=== PATIENT | female | born 1950 | race Caucasian/White ===

== ENCOUNTER 2017-07-04 12:26 | Emergency (ER) | payer MEDICARE, BC ==
[2017-07-04 13:21] LABS: URINE APPEARANCE CLEAR; URINE BILIRUBIN NEGATIVE (NEGATIVE); URINE BLOOD NEGATIVE (NEGATIVE); URINE COLOR YELLOW; URINE GLUCOSE (UA) NEGATIVE (NEGATIVE); URINE KETONE NEGATIVE (NEGATIVE); URINE LEUKOCYTE ESTERASE NEGATIVE (NEGATIVE); URINE NITRITE NEGATIVE (NEGATIVE); URINE PROTEIN NEGATIVE (NEGATIVE); URINE UROBILINOGEN 0.2 E.U./dL (0.20 - 1.00)
[2017-07-04] MEDS ORDERED: 0.9 % SODIUM CHLORIDE 1,000 ML BAG IV ONE (13:31)
--- NOTE | 2017-07-04 13:31 | Emergency Department Record ---
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 Onset/Timin -: Days(s) Radiation: R flank Severity: Moderate Severity scale (1-10): 7 Quality: Sharp Consistency: Intermittent Improves with: None Worsens with: None Associated Symptoms: Denies other symptoms - Related Data Home Medications Medication Instructions Recorded Confirmed Last Taken Pioglitazone HCl [Actos] 30 mg PO DAILY 07/04/17 07/04/17 07/04/17 Previous Rx's Medication Instructions Recorded Cyclobenzaprine HCl [Flexeril] 10 mg PO TID #20 tablet 07/04/17 Allergies Allergy/AdvReac Type Severity Reaction Status Date / Time amoxicillin trihydrate Allergy Mild STOMACH Verified 07/04/17 13:01 [From Augmentin] UPSET potassium clavulanate Allergy Mild STOMACH Verified 07/04/17 13:01 [From Augmentin] UPSET gentamicin sulfate Allergy RASH Verified 07/04/17 13:01 [From Garamycin] NSAIDS (Non-Steroidal AdvReac NAUSEA AND Verified 07/04/17 13:01 Anti-Inflamma VOMITING Travel Screening - Travel/Exposure Within Last 30 Days Have you traveled within the last 30 days?: No - Travel/Exposure Within Last Year Have you traveled outside the [place] in the last year?: No - Additonal Travel Details Have you been exposed to anyone with a communicable illness?: No - Travel Symptoms Symptom Screening: None Past Medical History - SOCIAL HISTORY Smoking Status: Never smoker Alcohol Use: None Drug Use: None - RESPIRATORY Hx Respiratory Disorders: Yes Hx Asthma: Yes (uses inhaler prn) Hx Bronchitis: Yes Hx Sleep Apnea: Yes Hx of CPAP: Yes Comment:: chronic cough - CARDIOVASCULAR Hx Cardio Disorders: Yes Hx Hypertension: Yes - NEURO Hx Neuro Disorders: No - GI Hx GI Disorders: Yes Hx Reflux: Yes Comment:: Fatty liver - Hx Genitourinary Disorders: Yes Hx Kidney Stones: Yes - ENDOCRINE Hx Endocrine Disorders: Yes Hx Diabetes: Yes Comment:: TSH runs high not on meds - MUSCULOSKELETAL Hx Musculoskeletal Disorders: Yes Hx Arthritis: Yes - PSYCH Hx Psych Problems: No - HEMATOLOGY/ONCOLOGY Hx Hematology/Oncology Disorders: No Family Medical History Any Significant Family History?: Yes Hx Heart Disease: Father, Mother Course Vital Signs 07/04/17 13:06 Temperature 98.7 F Pulse Rate 109 H Respiratory 20 Rate Blood Pressure 124/81 Pulse Ox 99 Medical Decision Making - Lab Data Result diagrams: 07/04/17 13:55 07/04/17 13:55 Lab Results 07/04/17 Range/Units 13:15 Urine Color Yellow Urine Appearance Clear Urine pH 5.5 (5.0-8.0) Ur Specific [place] 1.010 (1.002-1.030) Urine Protein Negative (NEGATIVE) Urine Glucose (UA) Negative (NEGATIVE) Urine Ketones Negative (NEGATIVE) Urine Blood Negative (NEGATIVE) Urine Nitrite Negative (NEGATIVE) Urine Bilirubin Negative (NEGATIVE) Urine Urobilinogen 0.2 (0.20 - 1.00) E.U./dL Ur Leukocyte Esterase Negative (NEGATIVE) Disposition Clinical Impression: GERD (gastroesophageal reflux disease) Qualifiers: Esophagitis presence: with esophagitis Qualified Code(s): K21.0 - Gastro- esophageal reflux disease with esophagitis Lumbar strain Qualifiers: Encounter type: initial encounter Qualified Code(s): S39.012A - Strain of muscle, fascia and tendon of lower back, initial encounter Disposition: Home, Self-Care Condition: (1) Good Instructions: Flank Pain (ED), Gastroesophageal Reflux Disease (ED), Low Back Strain (ED) Additional Instructions: follow up with Dr. Khan next week follow up with GI for possible MRCP or ERCP maalox 30 ml after meals and bedtime tylenol for added pain relief Prescriptions: Cyclobenzaprine HCl [Flexeril] 10 mg PO TID #20 tablet Forms: Patient Portal Access Time of Disposition: 16:15 Quality - Quality Measures Quality Measures: N/A - Blood Pressure Screening Does Patient Have Any of the Following: No Blood Pressure Classification: Pre-Hypertensive BP Reading Systolic Measurement: 124 Diastolic Measurement: 81 Screening for High Blood Pressure: < Pre-Hypertensive BP, F/U Documented > [ G8950] Pre-Hypertensive Follow-up Interventions: Referral to alternative/primary care provider.
[2017-07-04] MEDS ORDERED: KETOROLAC 30 MG/ML VIAL IVP ONE (13:33)
[2017-07-04 14:14] LABS: BASO % 0.4 % (0-6); EOS % 0.9 % (0-6); HEMATOCRIT 41.5 % (35.0-47.0); HEMOGLOBIN 13.8 gm/dl (11.6-16.0); LYMPH % 27.5 % (16-45); MEAN CELL VOLUME 89.4 fl (81-97); MEAN CORPUSCULAR HEMOGLOBIN 29.7 pg (27-33); MEAN CORPUSCULAR HGB CONC 33.3 g/dl (32-36); MEAN PLATELET VOLUME 11.1 fl (7.4-10.4); MONO % 11.2 % (0-9); PLATELET COUNT 228 K/uL (130-400); RED BLOOD COUNT 4.64 M/uL (3.80-5.40); RED CELL DISTRIBUTION WIDTH 13.3 % (11.5-14.5); WHITE BLOOD COUNT W/O DIFF 5.5 K/uL (4.2-12.2)
[2017-07-04 14:22] LABS: BLOOD UREA NITROGEN 10 mg/dL (8-23); CREATININE 0.8 mg/dL (0.5-0.9); EST GLOMERULAR FILTRATION RATE > 60 mL/min
[2017-07-04 14:25] LABS: GLUCOSE,RANDOM 135 mg/dL (74-109)
[2017-07-04 14:27] LABS: ALT/SGPT 62 U/L (<33)
[2017-07-04 14:28] LABS: ALBUMIN 4.3 g/dL (4.0-5.0); ALKALINE PHOSPHATASE 61 U/L (35-104); AST/SGOT 42 U/L (10.0-35.0); LIPASE 62 U/L (13-60)
[2017-07-04 14:29] LABS: BILIRUBIN,DIRECT < 0.2 mg/dL (0-0.3)
[2017-07-04] MEDS ORDERED: AL HYDROX/MAG HYDROX 30ML UD PO ONE (16:09)
--- NOTE | 2017-07-05 00:35 | CT SCAN REPORT ---
EXAM: CT SCAN ABDOMEN/PELVIS WO CONTRAST HISTORY: RIGHT FLANK PAIN AND RIGHT-SIDED BACK PAIN SINCE EARLY THIS MORNING. CHOLECYSTECTOMY, APPENDECTOMY, COLON RESECTION, LITHOTRIPSY. TECHNIQUE: Axial CT scan of the abdomen and pelvis performed without oral or IV contrast. COMPARISON: CT abdomen and pelvis dated 02/15/14. FINDINGS: No intrarenal calculi seen on the right. There are multiple small calcifications in the left kidney consistent with currently nonobstructing intrarenal calculi on the left. There is no hydronephrosis or hydroureter on the left with no left ureteral or bladder calculus evident. There is also no appreciable hydronephrosis on the symptomatic right side and no hydroureter on the right with no definite right ureteral calculus evident. There are probably some small calcified phleboliths adjacent to both ureters in the pelvis. Fairly extensive postoperative findings again noted as before including cholecystectomy with surgical clips in the gallbladder fossa, hysterectomy, and colectomy with apparent ileostomy in the left side of the abdomen as before. Evaluation of the bowel is considerably limited without oral contrast today but the apparent thick-walled appearance of the distal small bowel a short distance from the ileostomy site is much less apparent today. Moderate-sized hiatal hernia, larger than before. Evaluation of the viscera very limited today without IV contrast. Given this limitation, no definite hepatic, splenic, adrenal, pancreatic, or renal mass identified. No free intraperitoneal air or free intraperitoneal fluid evident. Prominent spurring in the thoracic spine and facet joint arthropathy in the lumbar spine. IMPRESSION: 1. MULTIPLE NONOBSTRUCTING INTRARENAL CALCULI WITHIN THE LEFT KIDNEY. 2. NO RIGHT-SIDED URINARY TRACT CALCULI IDENTIFIED WITH NO HYDRONEPHROSIS OR HYDROURETER ON THE RIGHT. 3. FAIRLY EXTENSIVE POSTOPERATIVE FINDINGS BEFORE INCLUDING CHOLECYSTECTOMY , HYSTERECTOMY, COLECTOMY, AND ILEOSTOMY IN THE LEFT LOWER QUADRANT. 4. MODERATE-SIZED HIATAL HERNIA, LARGER THAN THAT SEEN ON 02/15/14. JOB NUMBER: [id number] [facility]
== END 2017-07-04 16:40 | disposition home or self-care (01) ==
LOC: ER 12:26
DX: S39.012A Strain of muscle, fascia and tendon of lower back, initial encounter (principal); K21.0 Gastro-esophageal reflux disease with esophagitis; R10.9 Unspecified abdominal pain; X58.XXXA Exposure to other specified factors, initial encounter; Z87.442 Personal history of urinary calculi
CPT/HCPCS: 99284 ×2; 96374; 83690; 85025; 80076; 80048; 81003; 74176; J1885; J7030

== ENCOUNTER 2017-11-30 12:34 | Day surgery (SDC) | payer MEDICARE, BC ==
[2017-11-30] MEDS ORDERED: PROPOFOL 10 MG/ML VIAL IV ONE (12:35)
[2017-11-30] MEDS ORDERED: LIDOCAINE 2% MDV (20MG/ML) 20ML VIAL IV ONE (12:35)
--- NOTE | 2017-12-01 12:50 | Operative Note ---
DATE OF SURGERY: 11/30/2017 OPERATION: ESOPHAGOGASTRODUODENOSCOPY with multiple biopsies. INDICATION: Episodes of severe right upper quadrant pain. The cause remains unclear. She has had previous tattooing which proved to be unremarkable including a HIDA scan with SOB protocol. Upper endoscopy is performed at this time for further evaluation. ANESTHESIA: Intravenous sedation was administered by the department of anesthesiology and included Diprivan titrated to effect. PROCEDURE: Following informed consent from this alert individual, including a discussion of the risks and benefits of the procedure and an opportunity for the patient to ask questions, the patient was in the left lateral decubitus position. The Olympus [id number] video endoscope was inserted into the esophagus without resistance. The proximal esophagus had a normal appearance with normal folds and distensibility. The mid esophagus likewise was free from changes. The distal esophageal segment demonstrated some slight irregularity of the squamocolumnar junction and a 3 cm hiatal hernia. The hernia sac itself was free from changes. The subdiaphragmatic stomach was entered. The gastric fundus had multiple gastric fundal polyps noted. The antrum evaluated circumferentially demonstrated small amount of bilious liquid and some linear antral gastritis. No ulcerations or erosions were seen throughout the stomach. The pylorus was patent. The duodenal bulb, sweep, and descending duodenum were then examined in a serial fashion and found to be normal. The endoscope was then withdrawn back into the body of the stomach, where retroflexion accomplished following air insufflation failed to demonstrate any additional changes. Again a hiatal hernia was noted with gastric fundal polyps. The endoscope was then straightened. Biopsies from the stomach were obtained to assess for Helicobacter pylori and check histology. A second set of biopsies were taken from the GE junction upon withdrawal. There was no evidence of Sullivan's esophagus in the past on pathology. The endoscope was then withdrawn and removed. The patient tolerated the procedure well and was returned to the recovery area in stable condition. IMPRESSION: 1. Mild linear antral gastritis. Biopsies taken from the stomach. 2. Multiple gastric fundal polyps. 3. A 3 cm hiatal hernia. 4. Slight irregular Z line. Biopsies taken from the stomach and the GE junction. RECOMMENDATION: Further recommendations will be forthcoming pending results of pathology obtained today. Followup will also be with Robert Khan DO. The patient's pain last occurred approximately 2 months ago without recurrence, and it may be related to intraabdominal adhesions. As always, thank you for allowing me to participate in the care of your patient. CC: DO LEIGHTON Nguyen
== END 2017-11-30 14:42 | disposition home or self-care (01) ==
LOC: HOP 12:34
PROVIDERS: ATTEND Internal Medicine Gastroenterology
DX: K29.70 Gastritis, unspecified, without bleeding (principal); K31.7 Polyp of stomach and duodenum; K44.9 Diaphragmatic hernia without obstruction or gangrene; K31.89 Other diseases of stomach and duodenum; I10 Essential (primary) hypertension; E11.9 Type 2 diabetes mellitus without complications; Z79.4 Long term (current) use of insulin; J45.909 Unspecified asthma, uncomplicated

== ENCOUNTER 2018-02-25 12:36 | Emergency (ER) | payer MEDICARE, BC ==
[2018-02-25] MEDS ORDERED: ONDANSETRON HCL IV 4 MG/2 ML VIAL IVP ONE ×2 (12:48→14:15)
[2018-02-25] MEDS ORDERED: 0.9 % SODIUM CHLORIDE 1,000 ML BAG IV ONE ×2 (12:48→14:15)
--- NOTE | 2018-02-25 12:52 | Emergency Department Record ---
History of Present Illness - General Chief complaint: Nausea, Vomiting, Diarrhea Stated complaint: DEHYDRATION Time Seen by Provider: 02/25/18 12:47 Source: Patient, Family Mode of Arrival: Ambulatory Limitations: No limitations - History of Present Illness Initial comments: 67 yo female presents with a concern about one week of nausea, poor appetite, vomiting and dehydration. She reports she has COPD and recently has had cough and wheezing. She started her Keflex and Steroid. Those symptoms are much improved. She has an ileostomy and quickly becomes dehydrated. She has not checked her sugar recently and does not recall her last level. She reports a history of hypokalemia with dehydration. Dr Khan and Odette are her doctors. No bloody stools. No significant abdominal pain. She only vomits when she eats. No abdominal pain. She has an ostomy that is functioning normally. MD complaint: Nausea, Vomiting -: Week(s) (1) Description of Vomiting: Watery Description of Diarrhea: Water Location: Diffuse Radiation: None Severity: Moderate Quality: Cramping Consistency: Intermittent Improves with: Other (Not eating) Worsens with: Eating Context: Other Associated Symptoms: Cough, Headaches, Loss of appetite, Malaise, Nausea/ vomiting, Weakness - Related Data Previous Rx's Medication Instructions Recorded Ondansetron [Zofran Odt] 4 mg PO Q8H #15 tab.rapdis 02/25/18 Allergies Allergy/AdvReac Type Severity Reaction Status Date / Time amoxicillin trihydrate Allergy Mild STOMACH Verified 02/25/18 12:50 [From Augmentin] UPSET potassium clavulanate Allergy Mild STOMACH Verified 02/25/18 12:50 [From Augmentin] UPSET gentamicin sulfate Allergy RASH Verified 02/25/18 12:50 [From Garamycin] NSAIDS (Non-Steroidal AdvReac NAUSEA AND Verified 02/25/18 12:50 Anti-Inflamma VOMITING Review of Systems Constitutional: Reports: Malaise, Weakness. Denies: Chills, Fever Eyes: Denies: Eye discharge, Eye pain, Photophobia, Vision change ENT: Reports: Congestion Respiratory: Reports: Cough, Wheezes Cardiovascular: Denies: Chest pain, Palpitations, Syncope Endocrine: Reports: Fatigue. Denies: Polydipsia, Polyuria Gastrointestinal: Reports: Nausea, Vomiting. Denies: Abdominal pain, Diarrhea, Hematemesis, Hematochezia Genitourinary: Denies: Dysuria, Urgency Musculoskeletal: Denies: Arthralgia, Back pain, Myalgia Skin: Denies: Bruising, Change in color, Rash Neurological: Reports: Headache, Weakness Psychiatric: Denies: Anxiety Hematological/Lymphatic: Denies: Easy bleeding, Easy bruising Past Medical History - SOCIAL HISTORY Smoking Status: Never smoker - RESPIRATORY Hx Respiratory Disorders: Yes Hx Asthma: Yes (uses inhaler prn) Hx Bronchitis: Yes Hx Sleep Apnea: Yes Hx of CPAP: Yes Comment:: chronic cough - CARDIOVASCULAR Hx Palpitations: Yes (Fast heartbeat) - NEURO Hx Neuro Disorders: No - GI Hx Ulcer: Yes (1 year ago) - Hx Genitourinary Disorders: Yes Hx Kidney Stones: Yes - ENDOCRINE Hx Endocrine Disorders: Yes Hx Diabetes: Yes Comment:: TSH runs high not on meds - MUSCULOSKELETAL Hx Musculoskeletal Disorders: Yes Hx Arthritis: Yes - PSYCH Hx Psych Problems: No - HEMATOLOGY/ONCOLOGY Hx Hematology/Oncology Disorders: No Family Medical History Hx Heart Disease: Father, Mother Physical Exam - General General Appearance: Alert, Oriented x3, Cooperative, No acute distress Limitations: No limitations - Head Head exam: Atraumatic, Normal inspection - Eye Eye exam: Normal appearance. negative: Conjunctival injection, Periorbital swelling, Scleral icterus - ENT ENT exam: Normal exam, Mucous membranes moist, Normal orophraynx Ear exam: Normal external inspection Nasal Exam: Discharge. negative: Normal inspection Mouth exam: Normal external inspection - Neck Neck exam: Normal inspection, Full ROM. negative: Tenderness - Respiratory Respiratory exam: Normal lung sounds bilaterally. negative: Accessory muscle use, Decreased breath sounds, Prolonged expiratory, Respiratory distress, Rhonchi, Stridor, Wheezes - Cardiovascular Cardiovascular Exam: Regular rate, Normal rhythm, Normal heart sounds - GI/Abdominal GI/Abdominal exam: Soft, Normal bowel sounds. negative: Distended, Guarding, Rebound, Rigid, Tenderness - Rectal Rectal exam: Deferred - exam: Deferred - Extremities Extremities exam: Normal inspection, Full ROM, Normal capillary refill. negative: Pedal edema, Tenderness - Back Back exam: Denies: CVA tenderness (R), CVA tenderness (L) - Neurological Neurological exam: Alert, Oriented X3 - Psychiatric Psychiatric exam: Normal affect, Normal mood - Skin Skin exam: Dry, Intact, Normal color, Warm Course - Reevaluation(s) Reevaluation #1: 02/25/18 14:53 The labs were reviewed No acute changes on the CBC The CMP with minimal LFT's changes. These are chronic with her history of fatty liver The UA is consistent with infection - UTI 02/25/18 15:11 No vomiting or abdominal pain in the ED She is feeling improved with IVF and medications She was given her solumedrol for her lungs and the rocephin for the UTI She will not need addition medication until tomorrow A prescription was sent for Zofran 02/25/18 15:22 We discussed the results of the tests and questions were answered at the time of discharge. The patient is doing well and is comfortable with DC. DC vitals were reviewed. We discussed at length reasons to immediately return to the ED as well as close follow up. The patient will call the PCP for close follow up of this ED visit to review this visit and the tests performed She will return if unable to keep her antibiotics down tomorrow when she restarts. Medical Decision Making - Lab Data Result diagrams: 02/25/18 12:55 02/25/18 12:55 Disposition Disposition: Discharge Clinical Impression: Nausea and vomiting Qualifiers: Vomiting type: unspecified Vomiting Intractability: non-intractable Qualified Code(s): R11.2 - Nausea with vomiting, unspecified COPD (chronic obstructive pulmonary disease) Qualifiers: COPD type: unspecified COPD Qualified Code(s): J44.9 - Chronic obstructive pulmonary disease, unspecified Urinary tract infection Qualifiers: Encounter type: sequela Disposition: Home, Self-Care Condition: (1) Good Instructions: Urinary Tract Infection in Women (ED), Acute Nausea and Vomiting (ED) Additional Instructions: Take the prescriptions provided today as directed. Call your family doctor. Call to schedule the next available appointment for a recheck. Return to ED if your symptoms worsen or if you have any new concerns. Review the final Emergency Record and test results with your doctor on follow up Prescriptions: Ondansetron [Zofran Odt] 4 mg PO Q8H #15 tab.rapdis Forms: Patient Portal Access Time of Disposition: 17:24 Quality - Quality Measures Quality Measures: N/A - Blood Pressure Screening Does Patient Have Any of the Following: No Blood Pressure Classification: Pre-Hypertensive BP Reading Systolic Measurement: 127 Diastolic Measurement: 85 Screening for High Blood Pressure: < Pre-Hypertensive BP, F/U Documented > [ G8950] Pre-Hypertensive Follow-up Interventions: Referral to alternative/primary care provider.
[2018-02-25 13:09] LABS: BASO % 0.1 % (0-6); EOS % 0.1 % (0-6); GRAN % 74.1 % (47-80); HEMATOCRIT 43.5 % (35.0-47.0); HEMOGLOBIN 14.1 gm/dl (11.6-16.0); LYMPH % 17.9 % (16-45); MEAN CELL VOLUME 89.7 fl (81-97); MEAN CORPUSCULAR HEMOGLOBIN 29.1 pg (27-33); MEAN CORPUSCULAR HGB CONC 32.4 g/dl (32-36); MEAN PLATELET VOLUME 10.7 fl (7.4-10.4); MONO % 7.8 % (0-9); PLATELET COUNT 269 K/uL (130-400); RED BLOOD COUNT 4.85 M/uL (3.80-5.40); RED CELL DISTRIBUTION WIDTH 12.9 % (11.5-14.5); WHITE BLOOD COUNT W/O DIFF 9.2 K/uL (4.2-12.2)
[2018-02-25 13:16] LABS: BLOOD UREA NITROGEN 11 mg/dL (8-23); CREATININE 0.7 mg/dL (0.5-0.9); EST GLOMERULAR FILTRATION RATE > 60 mL/min
[2018-02-25 13:19] LABS: GLUCOSE,RANDOM 155 mg/dL (74-109)
[2018-02-25 13:22] LABS: ALBUMIN 4.7 g/dL (4.0-5.0); ALKALINE PHOSPHATASE 68 U/L (35-104); ALT/SGPT 81 U/L (<33); AST/SGOT 59 U/L (10.0-35.0); LIPASE 70 U/L (13-60)
[2018-02-25] MEDS ORDERED: METHYLPREDNISOLONE PF 125MG/VIAL IVP ONE (13:25)
[2018-02-25] MEDS ORDERED: ACETAMINOPHEN 1,000 MG/100 ML BTL IVPB ONE (13:56)
[2018-02-25 14:26] LABS: URINE APPEARANCE CLEAR; URINE BILIRUBIN NEGATIVE (NEGATIVE); URINE BLOOD NEGATIVE (NEGATIVE); URINE COLOR YELLOW; URINE GLUCOSE (UA) NEGATIVE (NEGATIVE); URINE KETONE NEGATIVE (NEGATIVE); URINE LEUKOCYTE ESTERASE LARGE (NEGATIVE); URINE NITRITE POSITIVE (NEGATIVE); URINE PROTEIN NEGATIVE (NEGATIVE); URINE UROBILINOGEN 0.2 E.U./dL (0.20 - 1.00)
[2018-02-25 14:34] LABS: URINE BACTERIA 1+; URINE EPITHELIAL CELLS 0 - 2 (FEW); URINE RBC NONE SEEN (NONE SEEN)
[2018-02-25] MEDS ORDERED: CEFTRIAXONE SODIUM 1 GM in 0.9 % SODIUM CHLORIDE 100ML 100 ML IVPB ONE (14:52)
== END 2018-02-25 15:32 | disposition home or self-care (01) ==
LOC: ER 12:36
DX: N39.0 Urinary tract infection, site not specified (principal); R11.2 Nausea with vomiting, unspecified; J44.9 Chronic obstructive pulmonary disease, unspecified; R53.1 Weakness; R51 Headache
CPT/HCPCS: 99284 ×2; 96376; 96365; 96366; 96375; 96361; 96367; 83690; 85025; 80053; 81001; J2405; J2930; J7030

== ENCOUNTER 2019-07-21 16:06 | Observation (INO) | payer MEDICARE ==
[2019-07-21] MEDS ORDERED: 0.9 % SODIUM CHLORIDE 1,000 ML BAG IV ONE (16:47)
[2019-07-21] MEDS ORDERED: ONDANSETRON HCL IV 4 MG/2 ML VIAL IVP ONE (16:48)
--- NOTE | 2019-07-21 16:50 | Emergency Department Record ---
History of Present Illness - General Chief complaint: Vomiting Stated complaint: VOMITTING, Time Seen by Provider: 07/21/19 16:28 Source: Patient Mode of Arrival: Ambulatory Limitations: No limitations - History of Present Illness Initial comments: The patient is here due to frequent nausea and vomiting with bilateral flank pain for almost 2 weeks. She now feels very shakey and dehydrated and tremulous. The patient also feels very weak but has had no abdominal pain, or fever. She did have a CT scan done yesterday as an outpatient and it did not demonstrate any significant abnormalities. The patient does have a hx of multiple abdominal surgeries including a total colectomy with Ileostomy. The patient states she is still having relatively normal ostomy output. MD complaint: Nausea, Vomiting Onset/Timin -: Days(s) Description of Vomiting: Bilious Radiation: L flank, R flank Consistency: Constant Improves with: None Worsens with: None Associated Symptoms: Fever/chills, Nausea/vomiting, Weakness - Related Data Home Medications Medication Instructions Recorded Confirmed Last Taken Metoprolol Tartrate [Lopressor] 50 mg PO QHS PRN 07/21/19 07/21/19 Unknown Metoprolol Tartrate [Lopressor] 125 mg PO DAILY 07/21/19 07/21/19 Unknown Allergies Allergy/AdvReac Type Severity Reaction Status Date / Time amoxicillin trihydrate Allergy Mild STOMACH Verified 07/21/19 17:23 [From Augmentin] UPSET potassium clavulanate Allergy Mild STOMACH Verified 07/21/19 17:23 [From Augmentin] UPSET gentamicin sulfate Allergy RASH Verified 07/21/19 17:23 [From Garamycin] NSAIDS (Non-Steroidal AdvReac NAUSEA AND Verified 07/21/19 17:23 Anti-Inflamma VOMITING Travel Screening - Travel/Exposure Within Last 30 Days Have you traveled within the last 30 days?: No - Travel/Exposure Within Last Year Have you traveled outside the [place] in the last year?: No - Additonal Travel Details Have you been exposed to anyone with a communicable illness?: No - Travel Symptoms Symptom Screening: Vomiting Review of Systems Constitutional: Denies: Chills, Fever Eyes: Denies: Eye discharge ENT: Denies: Congestion Respiratory: Denies: Cough Cardiovascular: Denies: Arrhythmia Endocrine: Denies: Fatigue Gastrointestinal: Reports: Nausea, Vomiting. Denies: Diarrhea Genitourinary: Denies: Dysuria Musculoskeletal: Denies: Arthralgia Neurological: Denies: Seizure Past Medical History - SOCIAL HISTORY Smoking Status: Never smoker Alcohol Use: Rare Drug Use: None - RESPIRATORY Hx Respiratory Disorders: Yes Hx Asthma: Yes (uses inhaler prn) Hx Bronchitis: Yes Hx Sleep Apnea: Yes Hx of CPAP: Yes Comment:: chronic cough - CARDIOVASCULAR Hx Cardio Disorders: Yes Hx Palpitations: Yes (Fast heartbeat) - NEURO Hx Neuro Disorders: No - GI Hx GI Disorders: Yes Hx Ulcer: Yes (1 year ago) - Hx Genitourinary Disorders: Yes Hx Kidney Stones: Yes - ENDOCRINE Hx Endocrine Disorders: Yes Hx Diabetes: Yes Comment:: TSH runs high not on meds - MUSCULOSKELETAL Hx Musculoskeletal Disorders: Yes Hx Arthritis: Yes - PSYCH Hx Psych Problems: No - HEMATOLOGY/ONCOLOGY Hx Hematology/Oncology Disorders: No Hx Cancer: Yes (squamous cell) Family Medical History Any Significant Family History?: No Hx Heart Disease: Father, Mother Physical Exam - General General Appearance: Alert, Oriented x3, Cooperative, No acute distress - Head Head exam: Atraumatic, Normocephalic, Normal inspection - Eye Eye exam: Normal appearance, PERRL - ENT Throat exam: Normal inspection. negative: Tonsillar erythema, Tonsillar exudate - Neck Neck exam: Normal inspection, Full ROM. negative: Tenderness - Respiratory Respiratory exam: Normal lung sounds bilaterally. negative: Respiratory distress - Cardiovascular Cardiovascular Exam: Regular rate, Normal rhythm, Normal heart sounds, Tachycardia - GI/Abdominal GI/Abdominal exam: Soft, Normal bowel sounds. negative: Hypoactive bowel sounds, Rebound, Rigid, Tenderness - Extremities Extremities exam: Normal inspection, Full ROM, Normal capillary refill. negative: Tenderness - Neurological Neurological exam: Alert, Normal gait. negative: Abnormal gait, Motor sensory deficit - Psychiatric Psychiatric exam: negative: Anxious Course Vital Signs 07/21/19 16:21 Temperature 99.5 F Pulse Rate [ 146 H Pulse Ox Probe] Respiratory 16 Rate Blood Pressure 121/83 [Left Arm] Pulse Ox 95 - Reevaluation(s) Reevaluation #1: The patient is doing a lot better at this time but still nauseated. She clearly has a bladder infection and due to the vomiting, tachycardia and fever she will need to stay overnight at least in the hospital on IV Abx's. The patient is persistently tachycardic but I do believe that is also due to the fact she has been unable to keep her B-blockers down. I did discuss the case with Amber (SECURITY ATTENDANT) and she does accept the admission. 07/21/19 18:20 Medical Decision Making - Data Complexity MDM Data: Labs Ordered and/or Reviewed, EKG Ordered and/or Reviewed - Lab Data Result diagrams: 07/21/19 16:46 07/21/19 16:46 - EKG Data -: EKG Interpreted by Me EKG: Abnormal EKG (Sinus tach at 132, RsR' pattern. Possible old IWMI.) Disposition Disposition: Admit Clinical Impression: Pyelonephritis Disposition: Still a Patient at [facility] Decision to Admit: Admit from ER Decision to Admit Date: 07/21/19 Decision to Admit Time: 18:22 Accepting Physician: Odette Time Discussed w/Accepting Physician: 18:22 Condition: (2) Stable Forms: Patient Portal Access Time of Disposition: 18:22 Quality - Quality Measures Quality Measures: N/A - Blood Pressure Screening View Details: Yes Does Patient Have Any of the Following: No Blood Pressure Classification: Normal BP Reading Systolic Measurement: 110 Diastolic Measurement: 77 Screening for High Blood Pressure: < Normal BP, F/U Not Required > [G8783]
[2019-07-21] MEDS ORDERED: ACETAMINOPHEN 1,000 MG/100 ML BTL IVPB ONE (16:58)
[2019-07-21 17:03] LABS: HEMATOCRIT 40.9 % (35.0-47.0); HEMOGLOBIN 13.1 gm/dl (11.6-16.0); MEAN CELL VOLUME 88.5 fl (81-97); MEAN CORPUSCULAR HEMOGLOBIN 28.4 pg (27-33); MEAN PLATELET VOLUME 10.1 fl (7.4-10.4); PLATELET COUNT 238 K/uL (130-400); RED BLOOD COUNT 4.62 M/uL (3.80-5.40); RED CELL DISTRIBUTION WIDTH 13.6 % (11.5-14.5); WHITE BLOOD COUNT W/O DIFF 11.2 K/uL (4.2-12.2)
[2019-07-21 17:17] LABS: BLOOD UREA NITROGEN 10 mg/dL (8-23); CREATININE 0.9 mg/dL (0.5-0.9); EST GLOMERULAR FILTRATION RATE > 60 mL/min; LIPASE 25 U/L (13-60); TOTAL PROTEIN 7.1 g/dL (6.6-8.7)
[2019-07-21 17:19] LABS: GLUCOSE,RANDOM 134 mg/dL (74-109)
[2019-07-21 17:22] LABS: ALBUMIN 4.3 g/dL (4.0-5.0); ALKALINE PHOSPHATASE 63 U/L (35-104); ALT/SGPT 47 U/L (<33); AST/SGOT 39 U/L (10.0-35.0); BILIRUBIN,DIRECT 0.2 mg/dL (0-0.3)
[2019-07-21 17:49] LABS: URINE APPEARANCE CLEAR; URINE BILIRUBIN NEGATIVE (NEGATIVE); URINE BLOOD TRACE-I (NEGATIVE); URINE COLOR YELLOW; URINE GLUCOSE (UA) NEGATIVE (NEGATIVE); URINE KETONE TRACE (NEGATIVE); URINE LEUKOCYTE ESTERASE TRACE (NEGATIVE); URINE NITRITE NEGATIVE (NEGATIVE); URINE PROTEIN TRACE (NEGATIVE); URINE UROBILINOGEN 0.2 E.U./dL (0.20 - 1.00)
[2019-07-21 17:56] LABS: URINE BACTERIA FEW; URINE EPITHELIAL CELLS NONE SEEN (FEW); URINE RBC 0 - 2 (NONE SEEN); URINE WBC 36 - 50 (0-2/hpf)
[2019-07-21] MEDS ORDERED: CEFTRIAXONE 1GM/50ML BAG 1 GM/50 ML BAG IVPB ONE (17:58)
[2019-07-21] MEDS ORDERED: KETOROLAC 30 MG/ML VIAL IVP ONE (17:59)
[2019-07-21] MEDS ORDERED: 0.9 % SODIUM CHLORIDE 1000ML 1,000 ML IV ONE ×2 (18:02→18:54)
[2019-07-21] MEDS ORDERED: Non-Formulary MISC (Adalimumab [Humira Pen] 40 MG) IM SCH (18:54)
[2019-07-21] MEDS ORDERED: ONDANSETRON HCL IV 4 MG/2 ML VIAL IVP PRN (18:54)
[2019-07-21] MEDS ORDERED: KETOROLAC 30 MG/ML VIAL IVP PRN (18:54)
[2019-07-21] MEDS ORDERED: METOPROLOL TART 50 MG TABLET PO PRN (18:54)
[2019-07-21] MEDS: ACETAMINOPHEN 1,000 MG/100 ML BTL IVPB SCH ×2 (20:07→23:26)
[2019-07-21] MEDS ORDERED: METFORMIN 500 MG TABLET PO SCH (22:00)
[2019-07-21] MEDS: GABAPENTIN 300 MG CAPSULE PO SCH (22:58)
[2019-07-21] MEDS: IPRATROPIUM/ALBUTEROL (0.5MG/3MG) NEB INH SCH ×2 (23:13→23:19)
[2019-07-22] MEDS: CEFTRIAXONE 1GM/50ML BAG 1 GM/50 ML BAG IVPB SCH ×2 (06:20→17:35)
[2019-07-22] MEDS: IPRATROPIUM/ALBUTEROL (0.5MG/3MG) NEB INH SCH ×2 (06:29→06:48)
[2019-07-22 06:48] LABS: ABSOLUTE NEUTROPHIL COUNT 5.33; BASO % 0.2 % (0-6); EOS % 1.6 % (0-6); GRAN % 83.2 % (47-80); HEMATOCRIT 35.8 % (35.0-47.0); HEMOGLOBIN 10.9 gm/dl (11.6-16.0); LYMPH % 7.8 % (16-45); MEAN CELL VOLUME 90.4 fl (81-97); MEAN CORPUSCULAR HEMOGLOBIN 27.5 pg (27-33); MEAN CORPUSCULAR HGB CONC 30.4 g/dl (32-36); MEAN PLATELET VOLUME 10.4 fl (7.4-10.4); MONO % 7.2 % (0-9); PLATELET COUNT 201 K/uL (130-400); RED BLOOD COUNT 3.96 M/uL (3.80-5.40); RED CELL DISTRIBUTION WIDTH 13.7 % (11.5-14.5); WHITE BLOOD COUNT W/O DIFF 6.4 K/uL (4.2-12.2)
[2019-07-22] MEDS ORDERED: PANTOPRAZOLE SODIUM 40 MG TABLET PO SCH (07:00)
[2019-07-22] MEDS: ACETAMINOPHEN 1,000 MG/100 ML BTL IVPB SCH ×3 (07:02→13:59)
[2019-07-22 07:06] LABS: BLOOD UREA NITROGEN 9 mg/dL (8-23); CREATININE 0.9 mg/dL (0.5-0.9); EST GLOMERULAR FILTRATION RATE > 60 mL/min; GLUCOSE,RANDOM 125 mg/dL (74-109)
[2019-07-22] MEDS: 0.9 % SODIUM CHLORIDE 1000ML 1,000 ML IV PRN ×2 (07:59→17:32)
[2019-07-22] MEDS ORDERED: METFORMIN 500 MG TABLET PO SCH (08:30)
[2019-07-22] MEDS: METOPROLOL SUCC 25 MG TAB.ER PO SCH ×2 (08:56→09:12)
[2019-07-22] MEDS: METOPROLOL SUCC 50 MG TABLET PO SCH ×2 (08:56→09:12)
[2019-07-22] MEDS ORDERED: ARNUITY (FLUTICASONE FUROATE) 100MCG INH INH SCH (10:00)
[2019-07-22] MEDS: IPRATROPIUM/ALBUTEROL (0.5MG/3MG) NEB INH PRN (10:02)
[2019-07-22] MEDS: BREO (FLUTICASONE/VILANTEROL) 200MCG/25MCG INHALER INH SCH (10:02)
[2019-07-22] MEDS ORDERED: FLUCONAZOLE 100 MG TABLET PO ONE (14:00)
[2019-07-22] MEDS ORDERED: ACETAMINOPHEN 500 MG TABLET PO PRN (16:39)
[2019-07-22] MEDS: OMEPRAZOLE 40MG PO SCH (17:30)
[2019-07-22] MEDS ORDERED: ONDANSETRON 4 MG ODT TABLET SL PRN (17:43)
[2019-07-22] MEDS: METFORMIN 500MG PO SCH (18:26)
[2019-07-22] MEDS: GABAPENTIN 300 MG CAPSULE PO SCH (21:48)
[2019-07-22] MEDS ORDERED: LOPERAMIDE 2 MG CAPSULE PO ONE (22:17)
[2019-07-23] MEDS: CEFTRIAXONE 1GM/50ML BAG 1 GM/50 ML BAG IVPB SCH (05:10)
[2019-07-23] MEDS: OMEPRAZOLE 40MG PO SCH ×2 (06:04→19:54)
[2019-07-23 08:37] LABS: ABSOLUTE NEUTROPHIL COUNT 4.91; BASO % 0.3 % (0-6); EOS % 1.9 % (0-6); GRAN % 71.9 % (47-80); HEMATOCRIT 33.7 % (35.0-47.0); HEMOGLOBIN 10.2 gm/dl (11.6-16.0); LYMPH % 15.2 % (16-45); MEAN CELL VOLUME 90.8 fl (81-97); MEAN CORPUSCULAR HGB CONC 30.3 g/dl (32-36); MEAN PLATELET VOLUME 11.1 fl (7.4-10.4); MONO % 10.7 % (0-9); PLATELET COUNT 102 K/uL (130-400); RED BLOOD COUNT 3.71 M/uL (3.80-5.40); RED CELL DISTRIBUTION WIDTH 13.7 % (11.5-14.5); WHITE BLOOD COUNT W/O DIFF 6.8 K/uL (4.2-12.2)
[2019-07-23 08:41] LABS: MEAN CORPUSCULAR HEMOGLOBIN 27.4 pg (27-33)
[2019-07-23 08:53] LABS: ALB/GLOB RATIO 1.3 (1.1-1.8); ALBUMIN 3.2 g/dL (4.0-5.0); ALKALINE PHOSPHATASE 93 U/L (35-104); ALT/SGPT 99 U/L (<33); AST/SGOT 78 U/L (10.0-35.0); BLOOD UREA NITROGEN 5 mg/dL (8-23); CREATININE 0.7 mg/dL (0.5-0.9); EST GLOMERULAR FILTRATION RATE > 60 mL/min; GLUCOSE,RANDOM 100 mg/dL (74-109); TOTAL PROTEIN 5.7 g/dL (6.6-8.7)
[2019-07-23] MEDS: IPRATROPIUM/ALBUTEROL (0.5MG/3MG) NEB INH PRN (09:47)
[2019-07-23] MEDS: BREO (FLUTICASONE/VILANTEROL) 200MCG/25MCG INHALER INH SCH (09:47)
[2019-07-23] MEDS ORDERED: MAGNESIUM SULFATE 16 MEQ in 0.9 % SODIUM CHLORIDE 100ML 100 ML IV ONE (09:59)
[2019-07-23] MEDS ORDERED: CEFDINIR 300 MG CAPSULE PO ONE (11:57)
[2019-07-23] MEDS ORDERED: LOPERAMIDE 2 MG CAPSULE PO PRN (12:06)
[2019-07-23] MEDS: METFORMIN 500MG PO SCH ×2 (12:16→19:53)
--- NOTE | 2019-07-23 12:22 | History & Physical ---
History of Present Illness - Date of Service Date of Service for History & Physical: 07/22/19 - History of Present Illness Admitting Diagnosis: 1. Acute Pyelonephritis with Tachycardia History of Present Illness: 69 yo female presents to [facility] ER for n/v and flank pain for 2 weeks. Pt has been seen by PCP office x2 but did not get labs completed, UA had blood per pt report and then she did later in the week pass 2 kidney stones. Symptoms of shakiness, fatigue and weakness persisted. PMH ulcerative colitis, h/o colostomy with ileostomy. pt in weekly benigno injections but skipped this week related to feeling ill. UA positive for infectionm, right CVA tenderness suspicious for pyleonephritis Admit for pyleo, fever 68 07/21/19 07/21/19 16:21 17:57 Temperature 99.5 F 101.8 F H Temperature Oral Oral Source Pulse Rate [ 146 H 135 H Pulse Ox Probe] Respiratory 16 16 Rate Blood Pressure 121/83 110/77 [Left Arm] Blood Pressure 95 88 Mean [Left Arm] Pulse Ox 95 95 Oxygen Delivery Room Air Room Air Method Laboratory Tests 07/21/19 07/21/19 16:46 16:46 WBC 11.2 RBC 4.62 Hgb 13.1 Hct 40.9 Plt Count 238 Sodium 136 Potassium 4.0 Chloride 94 L Carbon Dioxide 28.0 Anion Gap 14.0 BUN 10 Creatinine 0.9 Estimated GFR > 60 Random Glucose 134 H Calcium 9.5 Total Bilirubin 0.80 Direct Bilirubin 0.2 AST 39 H ALT 47 H Alkaline Phosphatase 63 Total Protein 7.1 Albumin 4.3 Lipase 25 Laboratory Tests 07/21/19 17:42 Urine Color Yellow Urine Appearance Clear Urine pH 5.5 Ur Specific [place] 1.025 Urine Protein Trace H Urine Glucose (UA) Negative Urine Ketones Trace H Urine Nitrite Negative Urine Bilirubin Negative Urine Urobilinogen 0.2 Urine RBC 0 - 2 Urine WBC 36 - 50 Ur Epithelial Cells None seen Urine Bacteria Few 07/22/2019 Pt resting in bed, appears pale, needing assistance to sit up in bed, denies any current appetite but is trying to drink fluids. Lungs CTA, heart RRR, BSx4, no suprapubic tenderness but right sided CVA tenderness. Pt warm to the touch. Continue rocephin 1gm q12 hr, IVF, and regular home meds except benigno. IV tylenol changed to PO as pt is tolerating PO at this time. Eval in the AM, repeat labs in the AM. Tachycardia has resolved since fluids and IV ABX in ER. PCP Erin Travel Screening - Travel/Exposure Within Last 30 Days Have you traveled within the last 30 days?: No - Travel/Exposure Within Last Year Have you traveled outside the [place] in the last year?: No - Additonal Travel Details Have you been exposed to anyone with a communicable illness?: No - Travel Symptoms Symptom Screening: Fever (Subjective), Joint & Muscle Aches, Vomiting, Stomach Pain, Lack of Appetite, Chills Review of Systems Constitutional: Denies: Chills, Fever Eyes: Denies: Eye discharge ENT: Denies: Congestion Respiratory: Denies: Cough Cardiovascular: Denies: Arrhythmia Endocrine: Denies: Fatigue Gastrointestinal: Reports: Nausea, Vomiting. Denies: Diarrhea Genitourinary: Denies: Dysuria Musculoskeletal: Denies: Arthralgia Neurological: Denies: Seizure Past Medical History - SOCIAL HISTORY Smoking Status: Never smoker - RESPIRATORY Hx Respiratory Disorders: Yes Hx Asthma: Yes (uses inhaler prn) Hx Bronchitis: Yes Hx Sleep Apnea: Yes Hx of CPAP: Yes Comment:: chronic cough - CARDIOVASCULAR Hx Cardio Disorders: Yes Hx Palpitations: Yes (Fast heartbeat) - NEURO Hx Neuro Disorders: No - GI Hx GI Disorders: Yes Hx GI Bleed: Yes Hx Ulcer: Yes (1 year ago) - Hx Genitourinary Disorders: Yes Hx Kidney Stones: Yes - ENDOCRINE Hx Endocrine Disorders: Yes Hx Diabetes: Yes Comment:: TSH runs high not on meds - MUSCULOSKELETAL Hx Musculoskeletal Disorders: Yes Hx Arthritis: Yes - PSYCH Hx Psych Problems: No - HEMATOLOGY/ONCOLOGY Hx Hematology/Oncology Disorders: No Hx Cancer: Yes (squamous cell) Family Medical History Any Significant Family History?: No Hx Heart Disease: Father, Mother H&P Meds/Allergies - Allergies Allergies: Allergies Allergy/AdvReac Type Severity Reaction Status Date / Time amoxicillin trihydrate Allergy Mild STOMACH Verified 07/21/19 17:23 [From Augmentin] UPSET potassium clavulanate Allergy Mild STOMACH Verified 07/21/19 17:23 [From Augmentin] UPSET gentamicin sulfate Allergy RASH Verified 07/21/19 17:23 [From Garamycin] NSAIDS (Non-Steroidal AdvReac NAUSEA AND Verified 07/21/19 17:23 Anti-Inflamma VOMITING - Home Medications Home Medications Medication Instructions Recorded Confirmed Last Taken Metoprolol Tartrate [Lopressor] 50 mg PO QHS PRN 07/21/19 07/21/19 Unknown Metoprolol Succinate [Toprol Xl] 125 mg PO DAILY 07/22/19 07/22/19 Unknown - Active Medications Active Medications: Current Medications Acetaminophen (Tylenol 500mg Tab) 1,000 mg PO Q6H PRN PRN Reason: PAIN - MILD(1-4)/FEVER Albuterol/Ipratropium (Duoneb) 3 ml INH Q4H PRN PRN Reason: DIFFICULTY IN BREATHING Last Admin: 07/23/19 09:47 Dose: 3 ml Documented by: Cefdinir (Cefdinir) 300 mg PO BID ONE Stop: 07/23/19 11:58 Cholestyramine Resin (Prevalite) 1 pkt PO DAILY MARANDA Gabapentin (Neurontin) 300 mg PO QHS MARANDA Last Admin: 07/22/19 21:48 Dose: 300 mg Documented by: Ketorolac Tromethamine (Toradol) 15 mg IVP Q8H PRN PRN Reason: PAIN - MOD TO SEVERE (5-10) Loperamide HCl (Immodium) 2 mg PO Q8HR PRN PRN Reason: DIARRHEA Metoprolol Tartrate (Lopressor) 50 mg PO QHS PRN PRN Reason: tachycardia Last Admin: 07/21/19 20:25 Dose: 50 mg Documented by: Ondansetron HCl (Zofran) 4 mg IVP Q4H PRN PRN Reason: NAUSEA Last Admin: 07/22/19 13:55 Dose: 4 mg Documented by: Ondansetron HCl (Zofran Odt) 4 mg SL Q6HR PRN PRN Reason: NAUSEA/VOMITING Last Admin: 07/22/19 17:44 Dose: 4 mg Documented by: Omeprazole 40mg 1 each PO BIDAC MARANDA Last Admin: 07/23/19 06:04 Dose: 1 each Documented by: Metoprolol Succinate (100mg) 1 each PO DAILY MARANDA Metformin 500mg 1 each PO BIDWM MARANDA Last Admin: 07/22/19 18:26 Dose: Not Given Documented by: Physical Exam - Vital Signs Vital Signs: Vital Signs - Last 24 Hrs Temp Pulse Pulse Resp BP BP Pulse Ox 07/23/19 09:48 107 H 18 96 07/23/19 09:34 99.4 F 111 H 18 133/81 92 L 07/23/19 07:00 99.5 F 94 H 18 140/89 94 L 07/22/19 22:00 99.3 F 98 H 18 126/85 94 L 07/22/19 21:00 96 H 16 07/22/19 19:56 99.1 F 07/22/19 19:36 99.1 F 07/22/19 13:52 98.3 F 90/50 07/22/19 13:00 91 H 16 96/56 - General General Appearance: Alert, Oriented x3, Cooperative, Mild distress Limitations: No limitations - Head Head exam: Atraumatic, Normocephalic, Normal inspection - Eye Eye exam: Normal appearance, PERRL - ENT Throat exam: Normal inspection. negative: Tonsillar erythema, Tonsillar exudate - Neck Neck exam: Normal inspection, Full ROM. negative: Tenderness - Respiratory Respiratory exam: Normal lung sounds bilaterally. negative: Respiratory distress - Cardiovascular Cardiovascular Exam: Regular rate, Normal rhythm, Normal heart sounds Peripheral Pulses: 3+: Radial (R), Radial (L), Dorsalis Pedis (R), Dorsalis Pedis (L) - GI/Abdominal GI/Abdominal exam: Soft, Normal bowel sounds. negative: Hypoactive bowel sounds, Rebound, Rigid, Tenderness - Rectal Rectal exam: Deferred - exam: Deferred - Extremities Extremities exam: Normal inspection, Full ROM, Normal capillary refill. negative: Tenderness - Back Back exam: Reports: Normal inspection, CVA tenderness (R) - Neurological Neurological exam: Alert, Normal gait. negative: Abnormal gait, Motor sensory deficit - Psychiatric Psychiatric exam: Normal affect, Normal mood. negative: Anxious - Skin Skin exam: Dry, Intact, Pallor, Warm Results - Labs Result Diagrams: 07/23/19 08:28 07/23/19 08:28 Labs Last 24 Hours: Laboratory Results - last 24 hr 07/23/19 07/23/19 07/23/19 07:15 08:28 08:28 WBC 6.8 RBC 3.71 L Hgb 10.2 L Hct 33.7 L MCV 90.8 MCH 27.4 MCHC 30.3 L RDW 13.7 Plt Count 102 L MPV 11.1 H Gran % 71.9 Lymphocytes % 15.2 L Monocytes % 10.7 H Eosinophils % 1.9 Basophils % 0.3 Absolute Neutrophils 4.91 Sodium 139 Potassium 3.6 Chloride 104 Carbon Dioxide 21.0 L Anion Gap 14.0 BUN 5 L Creatinine 0.7 Estimated GFR > 60 Random Glucose 100 Calcium 7.8 L Magnesium 1.4 L Total Bilirubin 0.70 AST 78 H ALT 99 H Alkaline Phosphatase 93 Total Protein 5.7 L Albumin 3.2 L Globulin 2.5 Albumin/Globulin Ratio 1.3 Stl C.difficile Tox A&B Not detected VTE H&P Assessment - Risk for VTE Risk for VTE: Yes Risk Level: Moderate Risk Assessment Date: 07/23/19 Risk Assessment Time: 12:25 VTE Orders Placed or Will Be Placed: Yes Plan - Detailed Diagnosis and Plan (1) Pyelonephritis Current Visit: Yes Status: Acute Base Code: N12 - TUBULO-INTERSTITIAL NEPHRITIS, NOT SPCF ACUTE OR CHRONIC Comment: 07/22/2019 -ua positive for infection, fever, chills, right CVA tenderness -Rocephin 1gm q 12 hrs, n/v PRN medications -IVF until PO intake improved -CRP elevated but pt has inflammatory bowel disease and skipped her benigno this week r/t illness -CT 07/20/2019 neg for hydronephrosis but pt had passes stones prior to exam (2) Tachycardia Current Visit: Yes Status: Acute Base Code: R00.0 - TACHYCARDIA, UNSPECIFIED Comment: 07/22/2019 -HR decreased from 146-->107 with IVF and IV ABX -cont cardiac monitoring -continue IVF, ABX, and home metoprolol (3) DVT prophylaxis Current Visit: Yes Status: Acute Base Code: Z29.9 - ENCOUNTER FOR PROPHYLACTIC MEASURES, UNSPECIFIED (4) Full code status Current Visit: Yes Status: Acute Base Code: Z78.9 - OTHER SPECIFIED HEALTH STATUS Comment: 07/22/2019 -full code this admission
[2019-07-23] MEDS: BIFIDOBACTERIUM INFANTIS 4 MG CAPSULE PO SCH (12:30)
[2019-07-23] MEDS: CHOLESTYRAMINE/ASPARTANE PKT PO SCH (12:36)
--- NOTE | 2019-07-23 12:43 | Physician Progress Note ---
Subjective - Date Date of Physician Progress Note: 07/23/19 Objective - Vital Signs Vital Signs: Vital Signs - Last 24 Hrs Temp Pulse Pulse Resp BP BP Pulse Ox 07/23/19 09:48 107 H 18 96 07/23/19 09:34 99.4 F 111 H 18 133/81 92 L 07/23/19 07:00 99.5 F 94 H 18 140/89 94 L 07/22/19 22:00 99.3 F 98 H 18 126/85 94 L 07/22/19 21:00 96 H 16 07/22/19 19:56 99.1 F 07/22/19 19:36 99.1 F 07/22/19 13:52 98.3 F 90/50 07/22/19 13:00 91 H 16 96/56 - General General Appearance: Alert, Oriented x3, Cooperative, No acute distress Limitations: No limitations - Head Head exam: Atraumatic, Normocephalic, Normal inspection - Eye Eye exam: Normal appearance, PERRL - ENT Throat exam: Normal inspection. negative: Tonsillar erythema, Tonsillar exudate - Neck Neck exam: Normal inspection, Full ROM. negative: Tenderness - Respiratory Respiratory exam: Normal lung sounds bilaterally. negative: Respiratory distress - Cardiovascular Cardiovascular Exam: Regular rate, Normal rhythm, Normal heart sounds Peripheral Pulses: 3+: Radial (R), Radial (L), Dorsalis Pedis (R), Dorsalis Pedis (L) - GI/Abdominal GI/Abdominal exam: Soft, Normal bowel sounds. negative: Hypoactive bowel so unds, Rebound, Rigid, Tenderness - Rectal Rectal exam: Deferred - exam: Deferred - Extremities Extremities exam: Normal inspection, Full ROM, Normal capillary refill. negative: Tenderness - Back Back exam: Reports: Normal inspection, CVA tenderness (R) - Neurological Neurological exam: Alert, Normal gait. negative: Abnormal gait, Motor sensory deficit - Psychiatric Psychiatric exam: Normal affect, Normal mood. negative: Anxious - Skin Skin exam: Dry, Intact, Pallor, Warm Assessment and Plan - Assessment and Plan (1) Pyelonephritis Current Visit: Yes Status: Acute Base Code: N12 - TUBULO-INTERSTITIAL NEPHRITIS, NOT SPCF ACUTE OR CHRONIC Comment: 07/23/2019 -pt has improved appetitie, nausea has resolve, new onset diarrhea, reporting to nursing that she emptied her colostomy bag 11 times last night -cdiff neg pt given 1 time dose of immodium, adding questran and probiotics today, immodium PRN -trasition to PO meds, low grade fever and CVA tenderness remains, ordered procalcitonin x2 and pending results -pt has hypotension, continue to monitor 07/22/2019 -ua positive for infection, fever, chills, right CVA tenderness -Rocephin 1gm q 12 hrs, n/v PRN medications -IVF until PO intake improved -CRP elevated but pt has inflammatory bowel disease and skipped her benigno this week r/t illness -CT 07/20/2019 neg for hydronephrosis but pt had passes stones prior to exam (2) Hypotension Current Visit: Yes Status: Acute Base Code: I95.9 - HYPOTENSION, UNSPECIFIED Comment: 07/23/2019 -Bp 123/83 on arrival, now 90/50 -procalitonin x2 pending, concerns for sepsis -pt to increase her PO fluids and will give bolus if no change or worsening symptoms -pt denies dizziness or weakness, states she is feeling better - (3) Tachycardia Current Visit: Yes Status: Acute Base Code: R00.0 - TACHYCARDIA, UNSPECIFIED Comment: 07/22/2019 -HR decreased from 146-->107 with IVF and IV ABX -cont cardiac monitoring -continue IVF, ABX, and home metoprolol (4) Diarrhea Current Visit: Yes Status: Acute Base Code: R19.7 - DIARRHEA, UNSPECIFIED Comment: 07/23/2019 -pt reports diarrhea, K stable but mag low, replaced with 2gm IVPB -cdiff ordered and neg -questran, probiotic and immodium ordered (5) DVT prophylaxis Current Visit: Yes Status: Acute Base Code: Z29.9 - ENCOUNTER FOR PROPHYLACTIC MEASURES, UNSPECIFIED (6) Full code status Current Visit: Yes Status: Acute Base Code: Z78.9 - OTHER SPECIFIED HEALTH STATUS Comment: 07/22/2019 -full code this admission Results - Labs Result Diagrams: 07/23/19 08:28 07/23/19 08:28 Labs Last 24 Hours: Laboratory Results - last 24 hr 07/23/19 07/23/19 07/23/19 07:15 08:28 08:28 WBC 6.8 RBC 3.71 L Hgb 10.2 L Hct 33.7 L MCV 90.8 MCH 27.4 MCHC 30.3 L RDW 13.7 Plt Count 102 L MPV 11.1 H Gran % 71.9 Lymphocytes % 15.2 L Monocytes % 10.7 H Eosinophils % 1.9 Basophils % 0.3 Absolute Neutrophils 4.91 Sodium 139 Potassium 3.6 Chloride 104 Carbon Dioxide 21.0 L Anion Gap 14.0 BUN 5 L Creatinine 0.7 Estimated GFR > 60 Random Glucose 100 Calcium 7.8 L Magnesium 1.4 L Total Bilirubin 0.70 AST 78 H ALT 99 H Alkaline Phosphatase 93 Total Protein 5.7 L Albumin 3.2 L Globulin 2.5 Albumin/Globulin Ratio 1.3 Stl C.difficile Tox A&B Not detected - Imaging and Cardiology CT scan - abdomen Status: Report reviewed DVT/PE Assessment - Risk for VTE Risk for VTE: No Risk Level: Moderate Risk Assessment Date: 07/23/19 Risk Assessment Time: 12:25 VTE Orders Placed or Will Be Placed: Yes - Active Medicaitons Current Medications: Current Medications Acetaminophen (Tylenol 500mg Tab) 1,000 mg PO Q6H PRN PRN Reason: PAIN - MILD(1-4)/FEVER Albuterol/Ipratropium (Duoneb) 3 ml INH Q4H PRN PRN Reason: DIFFICULTY IN BREATHING Last Admin: 07/23/19 09:47 Dose: 3 ml Documented by: Cholestyramine Resin (Prevalite) 1 pkt PO DAILY MARANDA Enoxaparin Sodium (Lovenox) 40 mg SQ DAILY MARANDA Gabapentin (Neurontin) 300 mg PO QHS MARANDA Last Admin: 07/22/19 21:48 Dose: 300 mg Documented by: Ketorolac Tromethamine (Toradol) 15 mg IVP Q8H PRN PRN Reason: PAIN - MOD TO SEVERE (5-10) Loperamide HCl (Immodium) 2 mg PO Q8HR PRN PRN Reason: DIARRHEA Metoprolol Tartrate (Lopressor) 50 mg PO QHS PRN PRN Reason: tachycardia Last Admin: 07/21/19 20:25 Dose: 50 mg Documented by: Ondansetron HCl (Zofran) 4 mg IVP Q4H PRN PRN Reason: NAUSEA Last Admin: 07/22/19 13:55 Dose: 4 mg Documented by: Ondansetron HCl (Zofran Odt) 4 mg SL Q6HR PRN PRN Reason: NAUSEA/VOMITING Last Admin: 07/22/19 17:44 Dose: 4 mg Documented by: Omeprazole 40mg 1 each PO BIDAC MARANDA Last Admin: 07/23/19 06:04 Dose: 1 each Documented by: Metoprolol Succinate (100mg) 1 each PO DAILY MARANDA Metformin 500mg 1 each PO BIDWM MARANDA Last Admin: 07/22/19 18:26 Dose: Not Given Documented by: AMI Plan - Labs Result Diagrams: 07/23/19 08:28 07/23/19 08:28
[2019-07-23] MEDS: METOPROLOL SUCCINATE 100MG PO SCH (12:55)
[2019-07-23] MEDS: ENOXAPARIN 40 MG/0.4 ML SYR SQ SCH (17:30)
[2019-07-23] MEDS: GABAPENTIN 300 MG CAPSULE PO SCH (21:14)
[2019-07-24] MEDS: OMEPRAZOLE 40MG PO SCH (06:25)
[2019-07-24] MEDS: BREO (FLUTICASONE/VILANTEROL) 200MCG/25MCG INHALER INH SCH (09:46)
[2019-07-24] MEDS: IPRATROPIUM/ALBUTEROL (0.5MG/3MG) NEB INH PRN (09:46)
[2019-07-24] MEDS: CHOLESTYRAMINE/ASPARTANE PKT PO SCH (10:10)
[2019-07-24] MEDS: BIFIDOBACTERIUM INFANTIS 4 MG CAPSULE PO SCH (10:10)
[2019-07-24] MEDS: ENOXAPARIN 40 MG/0.4 ML SYR SQ SCH (10:10)
[2019-07-24] MEDS: METOPROLOL SUCCINATE 100MG PO SCH (10:11)
[2019-07-24] MEDS: METFORMIN 500MG PO SCH (10:11)
[2019-07-24 11:30] LABS: ABSOLUTE NEUTROPHIL COUNT 3.27; BASO % 0.4 % (0-6); EOS % 1.4 % (0-6); GRAN % 63.7 % (47-80); HEMATOCRIT 33.8 % (35.0-47.0); HEMOGLOBIN 10.4 gm/dl (11.6-16.0); LYMPH % 25.1 % (16-45); MEAN CELL VOLUME 90.1 fl (81-97); MEAN CORPUSCULAR HEMOGLOBIN 27.7 pg (27-33); MEAN CORPUSCULAR HGB CONC 30.8 g/dl (32-36); MEAN PLATELET VOLUME 10.7 fl (7.4-10.4); MONO % 9.4 % (0-9); PLATELET COUNT 228 K/uL (130-400); RED BLOOD COUNT 3.75 M/uL (3.80-5.40); RED CELL DISTRIBUTION WIDTH 13.6 % (11.5-14.5); WHITE BLOOD COUNT W/O DIFF 5.1 K/uL (4.2-12.2)
[2019-07-24 11:40] LABS: BLOOD UREA NITROGEN 3 mg/dL (8-23); CREATININE 0.7 mg/dL (0.5-0.9); EST GLOMERULAR FILTRATION RATE > 60 mL/min
[2019-07-24 11:41] LABS: TOTAL PROTEIN 6.1 g/dL (6.6-8.7)
[2019-07-24 11:43] LABS: GLUCOSE,RANDOM 183 mg/dL (74-109)
--- NOTE | 2019-07-24 11:43 | Discharge Summary ---
Providers Discharge Summary Date: 07/24/19 Date of admission: 07/21/19 18:39 Expected Date of Discharge: 07/24/19 Attending physician: NALLELY BOJORQUEZ Primary care physician: Robert Khan D.O. Physical Exam - Vital Signs Vital Signs: Vital Signs - Last 24 Hrs Temp Pulse Pulse Resp BP Pulse Ox 07/24/19 09:47 102 H 18 98 07/24/19 09:00 107 H 18 07/24/19 07:46 98.5 F 16 126/82 92 L 07/24/19 05:00 98.6 F 107 H 18 128/80 95 07/24/19 00:00 98.4 F 07/23/19 21:00 16 07/23/19 20:00 98.2 F 99 H 18 124/75 96 07/23/19 14:14 98.9 F 104 H 16 93 L - General General Appearance: Alert, Oriented x3, Cooperative, No acute distress Limitations: No limitations - Head Head exam: Atraumatic, Normocephalic, Normal inspection - Eye Eye exam: Normal appearance, PERRL - ENT Throat exam: Normal inspection. negative: Tonsillar erythema, Tonsillar exudate - Neck Neck exam: Normal inspection, Full ROM. negative: Tenderness - Respiratory Respiratory exam: Normal lung sounds bilaterally. negative: Respiratory distress - Cardiovascular Cardiovascular Exam: Regular rate, Normal rhythm, Normal heart sounds Peripheral Pulses: 3+: Radial (R), Radial (L), Dorsalis Pedis (R), Dorsalis Pedis (L) - GI/Abdominal GI/Abdominal exam: Soft, Normal bowel sounds. negative: Hypoactive bowel sounds, Rebound, Rigid, Tenderness - Rectal Rectal exam: Deferred - exam: Deferred - Extremities Extremities exam: Normal inspection, Full ROM, Normal capillary refill. negative: Tenderness - Back Back exam: Reports: Normal inspection, CVA tenderness (R) - Neurological Neurological exam: Alert, Normal gait. negative: Abnormal gait, Motor sensory deficit - Psychiatric Psychiatric exam: Normal affect, Normal mood. negative: Anxious - Skin Skin exam: Dry, Intact, Pallor, Warm Hospitalization - Hospitalization Admission Diagnosis: 1. Acute Pyelonephritis with Tachycardia - Problem List/Discharge Diagnosis (1) Pyelonephritis Current Visit: Yes Status: Acute Base Code: N12 - TUBULO-INTERSTITIAL NEPHRITIS, NOT SPCF ACUTE OR CHRONIC Comment: 07/24/2019 -pt reports improvement, eating and drining with no issues -culture neg, but pt had elevated procalcitonin, tachycardia, and CVA tenderness supicious for pyelo, recently passed 2 stones during infection concerns -f/u PCP in 1 week, abx for 10 more days 07/23/2019 -pt has improved appetitie, nausea has resolve, new onset diarrhea, reporting to nursing that she emptied her colostomy bag 11 times last night -cdiff neg pt given 1 time dose of immodium, adding questran and probiotics today, immodium PRN -trasition to PO meds, low grade fever and CVA tenderness remains, ordered procalcitonin x2 and pending results -pt has hypotension, continue to monitor 07/22/2019 -ua positive for infection, fever, chills, right CVA tenderness -Rocephin 1gm q 12 hrs, n/v PRN medications -IVF until PO intake improved -CRP elevated but pt has inflammatory bowel disease and skipped her benigno this week r/t illness -CT 07/20/2019 neg for hydronephrosis but pt had passes stones prior to exam (2) Hypotension Current Visit: Yes Status: Acute Base Code: I95.9 - HYPOTENSION, UNSPECIFIED Comment: 07/24/2019 -Bp has stablized to 126/82, pt denies symptoms 07/23/2019 -Bp 123/83 on arrival, now 90/50 -procalitonin x2 pending, concerns for sepsis -pt to increase her PO fluids and will give bolus if no change or worsening symptoms -pt denies dizziness or weakness, states she is feeling better - (3) Tachycardia Current Visit: Yes Status: Acute Base Code: R00.0 - TACHYCARDIA, UNSPECIFIED Comment: 07/24/2019 -HR stabe 102, pt to f/u with PCP 07/22/2019 -HR decreased from 146-->107 with IVF and IV ABX -cont cardiac monitoring -continue IVF, ABX, and home metoprolol (4) Diarrhea Current Visit: Yes Status: Acute Base Code: R19.7 - DIARRHEA, UNSPECIFIED Comment: 07/24/2019 -continue questran, probiotic and immodium PRN 07/23/2019 -pt reports diarrhea, K stable but mag low, replaced with 2gm IVPB -cdiff ordered and neg -questran, probiotic and immodium ordered (5) DVT prophylaxis Current Visit: Yes Status: Acute Base Code: Z29.9 - ENCOUNTER FOR PROPHYLACTIC MEASURES, UNSPECIFIED (6) Full code status Current Visit: Yes Status: Acute Base Code: Z78.9 - OTHER SPECIFIED HEALTH STATUS Comment: 07/24/2019 -full code this admission - Hospitalization Course Disposition: Home, Self-Care Hospital Course: 69 yo female presents to [facility] for n/v and flank pain for 2 weeks. Pt has been seen by PCP office x2 but did not get labs completed, UA had blood per pt report and then she did later in the week pass 2 kidney stones. Symptoms of shakiness, fatigue and weakness persisted. PMH ulcerative colitis, h/o colostomy with ileostomy. pt in weekly benigno injections but skipped this week related to feeling ill. UA positive for infectionm, right CVA tenderness suspicious for pyleonephritis Admit for pyleo, fever 68 07/21/19 07/21/19 16:21 17:57 Temperature 99.5 F 101.8 F H Temperature Oral Oral Source Pulse Rate [ 146 H 135 H Pulse Ox Probe] Respiratory 16 16 Rate Blood Pressure 121/83 110/77 [Left Arm] Blood Pressure 95 88 Mean [Left Arm] Pulse Ox 95 95 Oxygen Delivery Room Air Room Air Method Laboratory Tests 07/21/19 07/21/19 16:46 16:46 WBC 11.2 RBC 4.62 Hgb 13.1 Hct 40.9 Plt Count 238 Sodium 136 Potassium 4.0 Chloride 94 L Carbon Dioxide 28.0 Anion Gap 14.0 BUN 10 Creatinine 0.9 Estimated GFR > 60 Random Glucose 134 H Calcium 9.5 Total Bilirubin 0.80 Direct Bilirubin 0.2 AST 39 H ALT 47 H Alkaline Phosphatase 63 Total Protein 7.1 Albumin 4.3 Lipase 25 Laboratory Tests 07/21/19 17:42 Urine Color Yellow Urine Appearance Clear Urine pH 5.5 Ur Specific Simla 1.025 Urine Protein Trace H Urine Glucose (UA) Negative Urine Ketones Trace H Urine Nitrite Negative Urine Bilirubin Negative Urine Urobilinogen 0.2 Urine RBC 0 - 2 Urine WBC 36 - 50 Ur Epithelial Cells None seen Urine Bacteria Few 07/22/2019 Pt resting in bed, appears pale, needing assistance to sit up in bed, denies any current appetite but is trying to drink fluids. Lungs CTA, heart RRR, BSx4, no suprapubic tenderness but right sided CVA tenderness. Pt warm to the touch. Continue rocephin 1gm q12 hr, IVF, and regular home meds except benigno. IV tylenol changed to PO as pt is tolerating PO at this time. Eval in the AM, repeat labs in the AM. Tachycardia has resolved since fluids and IV ABX in ER. PCP Erin Procedures: Cardiology Procedures 07/21/19 17:43 EKG NOW 07/21/19 18:54 Car Trimmer .Continuous Abnormal Labs: Abnormal Lab Results 07/21/19 07/21/19 07/21/19 Range/Units 16:46 16:46 16:46 RBC (3.80-5.40) M/uL Hgb (11.6-16.0) gm/dl Hct (35.0-47.0) % MCHC (32-36) g/dl Plt Count (130-400) K/uL MPV (7.4-10.4) fl Gran % (47-80) % Neutrophils % 84.0 H (47-80) % Lymphocytes % (16-45) % Monocytes % (0-9) % Lymphocytes 11.0 L (16-45) % Chloride 94 L (98-107) mmol/L Carbon Dioxide (22-29) mmol/L BUN (8-23) mg/dL Random Glucose 134 H (74-109) mg/dL Calcium (8.8-10.2) mg/dL Magnesium (1.6-2.4) mg/dL AST 39 H (10.0-35.0) U/L ALT 47 H (<33) U/L C-Reactive Protein 11.66 H (<0.5) mg/dL Total Protein (6.6-8.7) g/dL Albumin (4.0-5.0) g/dL Urine Protein (NEGATIVE) Urine Ketones (NEGATIVE) Ur Leukocyte Esterase (NEGATIVE) 07/21/19 07/22/19 07/22/19 Range/Units 17:42 06:29 06:29 RBC (3.80-5.40) M/uL Hgb 10.9 L (11.6-16.0) gm/dl Hct (35.0-47.0) % MCHC 30.4 L (32-36) g/dl Plt Count (130-400) K/uL MPV (7.4-10.4) fl Gran % 83.2 H (47-80) % Neutrophils % (47-80) % Lymphocytes % 7.8 L (16-45) % Monocytes % (0-9) % Lymphocytes (16-45) % Chloride (98-107) mmol/L Carbon Dioxide (22-29) mmol/L BUN (8-23) mg/dL Random Glucose 125 H (74-109) mg/dL Calcium 7.8 L (8.8-10.2) mg/dL Magnesium (1.6-2.4) mg/dL AST (10.0-35.0) U/L ALT (<33) U/L C-Reactive Protein (<0.5) mg/dL Total Protein (6.6-8.7) g/dL Albumin (4.0-5.0) g/dL Urine Protein Trace H (NEGATIVE) Urine Ketones Trace H (NEGATIVE) Ur Leukocyte Esterase Trace H (NEGATIVE) 07/23/19 07/23/19 Range/Units 08:28 08:28 RBC 3.71 L (3.80-5.40) M/uL Hgb 10.2 L (11.6-16.0) gm/dl Hct 33.7 L (35.0-47.0) % MCHC 30.3 L (32-36) g/dl Plt Count 102 L (130-400) K/uL MPV 11.1 H (7.4-10.4) fl Gran % (47-80) % Neutrophils % (47-80) % Lymphocytes % 15.2 L (16-45) % Monocytes % 10.7 H (0-9) % Lymphocytes (16-45) % Chloride (98-107) mmol/L Carbon Dioxide 21.0 L (22-29) mmol/L BUN 5 L (8-23) mg/dL Random Glucose (74-109) mg/dL Calcium 7.8 L (8.8-10.2) mg/dL Magnesium 1.4 L (1.6-2.4) mg/dL AST 78 H (10.0-35.0) U/L ALT 99 H (<33) U/L C-Reactive Protein (<0.5) mg/dL Total Protein 5.7 L (6.6-8.7) g/dL Albumin 3.2 L (4.0-5.0) g/dL Urine Protein (NEGATIVE) Urine Ketones (NEGATIVE) Ur Leukocyte Esterase (NEGATIVE) Condition at Discharge: (2) Stable Discharge Medications - Discharge Medications Prescriptions: Ondansetron [Zofran Odt] 4 mg SL Q6HR PRN #12 tab.rapdis PRN Reason: Nausea/Vomiting Loperamide HCl [Immodium] 2 mg PO Q8HR PRN #15 capsule PRN Reason: Diarrhea Bifidobacterium Infantis [Align] 4 mg PO DAILY #10 capsule Fluconazole [Diflucan] 150 mg PO ONCE #1 tab Cefdinir [Omnicef] 300 mg PO BID #20 cap Cholestyramine/Aspartame [Prevalite] 1 pkt PO DAILY #10 pkt Home Medications: Ambulatory Orders Adalimumab [Humira Pen] 40 mg IM ASDIR 04/01/16 [Last Taken 02/24/18] Fluticasone/Vilanterol [Breo Ellipta 200-25 Mcg INH] 1 each IH DAILY 30 Days #1 disk 05/06/18 [Last Taken Unknown] Gabapentin 300 mg PO QHS 30 Days #30 cap 08/06/18 [Last Taken Unknown] Ipratropium/Albuterol Sulfate [Iprat-Albut 0.5-3(2.5) mg/3 ml] 1 vial IH Q4-6HR 08/31/18 [Last Taken Unknown] Metoprolol Tartrate [Lopressor] 50 mg PO QHS PRN 07/21/19 [Last Taken Unknown] Metoprolol Succinate [Toprol Xl] 125 mg PO DAILY 07/22/19 [Last Taken Unknown] Acetaminophen [Tylenol 500Mg Tab] 1,000 mg PO Q6H PRN tablet 07/24/19 [Last Taken Unknown] Bifidobacterium Infantis [Align] 4 mg PO DAILY #10 capsule 07/24/19 [Last Taken Unknown] Cefdinir [Omnicef] 300 mg PO BID #20 cap 07/24/19 [Last Taken Unknown] Cholestyramine/Aspartame [Prevalite] 1 pkt PO DAILY #10 pkt 07/24/19 [Last Taken Unknown] Fluconazole [Diflucan] 150 mg PO ONCE #1 tab 07/24/19 [Last Taken Unknown] Fluticasone/Vilanterol 200/25 [Breo Ellipta 200-25 Mcg INH] 1 puff INH DAILY inhaler 07/24/19 [Last Taken Unknown] Loperamide HCl [Immodium] 2 mg PO Q8HR PRN #15 capsule 07/24/19 [Last Taken Unknown] Ondansetron [Zofran Odt] 4 mg SL Q6HR PRN #12 tab.rapdis 07/24/19 [Last Taken Unknown] Discharge Plan - Discharge Instructions Activity at Discharge: Increase Activity as Tolerated Diet at Discharge: Advance to Usual Diet Instructions: Urinary Tract Infection in Women (DC) Additional Instructions: Activity: May resume everyday activities as tolerated Diet: Resume heart health, low sodium diet Consults: [] Follow Up: Please see PCP in 1-2 weeks, hold on humira until you seen them and you symptoms have resolved. Dressing/Wound Care: (Type) (Change) Additional: [] Thank you for choosing [facility]!! Quality Measures - Quality Measures Quality Measures: Advance Directives, Documentation of Current Medications in Medical Record, Elder Maltreatment Screen and Follow-Up Plan, Screening for High Blood Pressure and F/U Documented - Current Medications Quality Measure: Measure #130: Documentation of Current Medications Documentation of Current Medications: <Current Medications Documented/Reviewed> [G6257] - Blood Pressure Screening Quality Measure: Screening for High Blood Pressure and Follow-Up Documented Does Patient Have Any of the Following: Active Dx of HTN Blood Pressure Classification: Normal BP Reading Systolic Measurement: 90 Diastolic Measurement: 50 Screening for High Blood Pressure: Patient Exclusion, Hx of HTN [G9744] - Advance Directives Quality Measure: Measure #47: Care Plan Advance Directives Established: Yes Advance Directives Information Provided To Patient: No Advance Directives on File: No Living Will: No Power of Boat Mechanic: No Advance Care Planning: <Care Plan/Decision Maker Documented; Discussed & Documented> [5255N] - Elder Abuse Suspicion Index Screening: Elder Abuse Suspicion Index Screening Rely on people for bathing, dressing, shopping, banking, etc: No Prevented from getting food, clothes, medication, etc: No Made to feel shamed or threatened by someone: No Forced to sign papers or use money against will: No Feel afraid, touched in ways not wanted or hurt physically: No Poor eye contact, withdrawn, malnourished, cuts or bruises: No Screening Result: Negative result EASI Reference Information: Naomy JOSIH, Samanta C, Joshua D, Gian Lam.Development and validation of a tool to assist physicians identification of elder abuse: T he Elder Abuse Suspicion Index (EASI ). Journal of Elder Abuse and Neglect, 2008; 20 (3): 276-300. - Elder Maltreatment Screen Quality Measures: Elder Maltreatment Screen and Follow-Up Plan Elder Maltreatment Screen: <Negative, No Follow-Up Plan Required> [G8734]
[2019-07-24 11:45] LABS: ALT/SGPT 90 U/L (<33)
[2019-07-24 11:46] LABS: ALB/GLOB RATIO 1.3 (1.1-1.8); ALBUMIN 3.5 g/dL (4.0-5.0); ALKALINE PHOSPHATASE 117 U/L (35-104); AST/SGOT 52 U/L (10.0-35.0)
== END 2019-07-24 13:45 | disposition home or self-care (01) ==
LOC: ER 16:06 → MEDSURG 18:39
PROVIDERS: ADMIT Internal Medicine; ATTEND Internal Medicine
DX: N10 Acute pyelonephritis (principal); R00.0 Tachycardia, unspecified; R10.9 Unspecified abdominal pain; R53.1 Weakness; I95.9 Hypotension, unspecified; R50.9 Fever, unspecified; R19.7 Diarrhea, unspecified; E11.9 Type 2 diabetes mellitus without complications; M19.90 Unspecified osteoarthritis, unspecified site; R05 Cough; G47.33 Obstructive sleep apnea (adult) (pediatric); Z93.2 Ileostomy status; Z87.442 Personal history of urinary calculi; Z85.9 Personal history of malignant neoplasm, unspecified
CPT/HCPCS: 80048; 80053; 80076; 81001; 83690; 83735; 84145; 85025; 85027; 86140; 87493; 93005; 93010; 94640; 96365; 96366; 96375; 99217; 99220; 99226; 99285; J0696; J1650; J1885; J2405; J7030